=== PATIENT | female | born 1975 | race Caucasian/White ===

== ENCOUNTER 2019-06-18 09:28 | Emergency (ER) | payer OTHER ==
[~2019-06-18] VITALS: Ht 170.2 cm; Wt 75.3 kg
[2019-06-18] MEDS ORDERED: SYNTHROID50 MCG (09:50)
[2019-06-18] MEDS ORDERED: INVOKAMET 150-1 EACH (09:51)
[2019-06-18] MEDS ORDERED: AMOX1TAB5 PO (11:38)
== END 2019-06-18 11:45 | disposition home or self-care (01) ==
LOC: ER 09:28
DX: M65.88 Other synovitis and tenosynovitis, other site (principal)